=== PATIENT | male | born 1975 | race Two or more races ===

== ENCOUNTER 2023-09-12 18:36 | Emergency (ER) | payer OTHER ==
[2023-09-12 18:52] VITALS: BP 126/82; PULSE 80; RESP 18; TEMP 98.5; BMI 29.0
[2023-09-12 20:15] LABS: EPI CELLS 6 /uL (0-25.1); HYALINE CASTS 0 /uL (0-3.1); URINE APPEARANCE CLEAR; URINE BACTERIA 90 /uL (0-1359); URINE BILIRUBIN NEGATIVE (NEGATIVE); URINE COLOR YELLOW; URINE GLUCOSE (UA) NEGATIVE (NEGATIVE); URINE KETONE NEGATIVE (NEGATIVE); URINE LEUK ESTERASE TRACE (NEGATIVE); URINE NITRITE NEGATIVE (NEGATIVE); URINE PROTEIN NEGATIVE (NEGATIVE); URINE RBC 15 /uL (0-23.9); URINE WBC 86 /uL (0-25.8)
[2023-09-12] MEDS ORDERED: KETOROLAC TROMETHAMINE 30 MG/1 ML VIAL ONE (20:50)
[2023-09-12] MEDS ORDERED: LIDOCAINE 4% PATCH TP ONE (20:50)
[2023-09-12] MEDS ORDERED: ACETAMINOPHEN 500 MG TABLET (FP) ONE (20:51)
[2023-09-12] MEDS ORDERED: SULFAMETHOXAZOLE/TRIMETHOPRIM 800MG/160MG D.S. TABLET ONE (20:58)
[2023-09-12] MEDS: LIDOCAINE 4% PATCH TP ONE (20:59)
[2023-09-12] MEDS: ACETAMINOPHEN 500 MG TABLET (FP) PO ONE (20:59)
[2023-09-12] MEDS: KETOROLAC TROMETHAMINE 30 MG/1 ML VIAL IM ONE (20:59)
[2023-09-12] MEDS: SULFAMETHOXAZOLE/TRIMETHOPRIM 800MG/160MG D.S. TABLET PO ONE (21:00)
[2023-09-12] MEDS ORDERED: LIDOCAINE PATCH REMOVAL MC SCH (22:00)
== END 2023-09-12 21:36 | disposition home or self-care (01) ==
LOC: JER 18:36
PROC: 3E0233Z Introduction of Anti-inflammatory into Muscle, Percutaneous Approach (ICD-10-PCS; principal; 2023-09-12)
DX: M54.50 Low back pain, unspecified (principal); M62.830 Muscle spasm of back
CPT/HCPCS: 81003; 87086; 99284-25